=== PATIENT | female | born 1980 | race Caucasian/White ===

== ENCOUNTER → 2018-06-08 | Day surgery (SDC) | payer BC ==
--- NOTE | 2018-06-11 15:22 | PATH ---
Surgical Pathology Report Patient Name: CHIN QUIÑONES [facility]. Rec. #: [id number] /Age/Gender: 1980 (Age: 38) / F Account: [id number] Location: [facility] RADIOLOGY U Taken: 06/08/2018 Received: 06/08/2018 Reported: 06/11/2018 Physicians: Rich Randle M.D. Specimen(s) Received LEFT BREAST CORE BIOPSY 2-300 4 CM FN Clinical History Ultrasound findings: Suspicious Final Diagnosis BREAST, LEFT, 2:30, 4 CM FN, CORE BIOPSY: BENIGN BREAST TISSUE SHOWING FIBROADENOMA AND SCANT DETACHED FRAGMENT OF PROLIFERATIVE DUCTAL EPITHELIUM WITHOUT ATYPIA. Electronically Signed Ana Cochran M.D. Gross Description Received in formalin labeled "left breast biopsy 2:30, 4 cmfn," is a 2.4 x 2.0 x 0.3 cm aggregate of multiple baker-yellow, irregular to cylindrical portions of fibroadipose tissue admixed with blood clot. The formalin is filtered and the specimen is entirely submitted in one cassette. Time to formalin fixation: 2 minutes Total formalin fixation time: Approximately 6 hours. /06/08/2018 saudi06/08/2018
== END | disposition home or self-care (01) ==
LOC: FRADUS-SUR 11:31
PROVIDERS: ATTEND Surgery Surgical Oncology
PROC: 0HBU3ZX Excision of Left Breast, Percutaneous Approach, Diagnostic (ICD-10-PCS; principal; 2018-06-08)
DX: D24.2 Benign neoplasm of left breast (principal); N63.21 Unspecified lump in the left breast, upper outer quadrant
CPT/HCPCS: 19083; 77065-TC; 88305-TC